=== PATIENT | male | born 1960 | race Caucasian/White ===

== ENCOUNTER 2017-03-16 14:40 | Emergency (ER) | payer BC ==
[2017-03-16] MEDS ORDERED: Albuterol/Ipratropium NEB.SOL* Albuterol 2.5 MG/Ipratropium 0.5 MG 3 ML INH ONE (15:43)
--- NOTE | 2017-03-16 16:42 | RAD ---
Indication: Shortness of breath, wheezing. 2 views the chest are reviewed. Heart is of normal size and configuration. Lung falcon appear to be hyperinflated with no evidence of alveolar consolidation. IMPRESSION: Hyperinflated lung falcon. No definite pneumonia is noted.
[2017-03-16 17:13] VITALS: BP 155/95
--- NOTE | 2017-03-16 17:31 | UC ---
Sharon Willams Alfonso, scribed for Moisés Medina MD on 03/16/17 at 1600 . Shortness of Breath HPI - HPI Summary HPI Summary: This patient is a 56 year old M presenting to [facility] accompanied by a male with a chief complaint of SOB since 3 months ago. He states I cannot get a full breath of air. Symptoms aggravated by exertion and alleviated by albuterol sulfate. Patient reports~chills, productive cough (clear phlegm), and wheezing. Patient denies~fever, nausea, rhinorrhea, CP, calf pain, and calf swelling. Tobacco abuse disorder. He denies PMHx of COPD, CAD, and HTN. PMHx of anxiety. - History of Current Complaint Chief Complaint: UCRespiratory Stated Complaint: SOB,CHEST CONGEST,COUGH Time Seen by Provider: 03/16/17 15:12 Hx Obtained From: Patient Onset/Duration: Sudden Onset, Lasting Weeks - 3 months, Still Present Timing: Constant Current Severity: Moderate Aggrevating Factors: Deep Breaths - Exertion Alleviating Factors: Bronchodilators Associated Signs & Symptoms: Positive: Cough (Productive), Wheezing, Chills - Allergy/Home Medications Allergies/Adverse Reactions: Allergies Allergy/AdvReac Type Severity Reaction Status Date / Time Penicillins [PCN] Allergy See Comment Verified 03/16/17 14:52 Home Medications: Home Medications Benzonatate CAP* [Tessalon 100 MG CAP*] 100 mg PO TID 03/16/17 [History Confirmed 03/16/17] Fluticasone NASAL SPRAY 50MCG* [Flonase NASAL SPRAY 50MCG*] 2 spray BOTH NARES DAILY 03/16/17 [History Confirmed 03/16/17] PMH/Surg Hx/FS Hx/Imm Hx Psychological History: Anxiety - Surgical History Surgical History: Yes Surgery Procedure, Year, and Place: orthoscopic to knee - Family History Known Family History: Positive: Diabetes - Social History Alcohol Use: Rare Substance Use Type: None Smoking Status (MU): Heavy Every Day Tobacco Smoker Type: Cigarettes Review of Systems Constitutional: Chills, Other - Negative fever ENT: Other - Negative rhinorrhea Respiratory: Shortness Of Breath, Cough - productive with clear phlegm, Other - Positive wheezing. Cardiovascular: Other - Negative CP Gastrointestinal: Other - Negative nausea. Musculoskeletal: Other: - Negative calf pain, and calf swelling All Other Systems Reviewed And Are Negative: Yes Physical Exam Triage Information Reviewed: Yes Vital Signs: Initial Vital Signs Temp 98.1 F 03/16/17 14:45 Pulse 78 03/16/17 14:45 Resp 18 03/16/17 14:45 BP 150/80 03/16/17 14:45 Pulse Ox 95 03/16/17 14:45 Vital Signs Reviewed: Yes - Additional Comments The patient is well-nourished in no acute distress and in no acute pain. The skin is warm and dry and skin color reflects adequate perfusion. HEENT: The head is normocephalic and atraumatic. The pupils are equal and reactive. The conjunctivae are clear and without drainage. Nares are patent and without drainage. Mouth reveals moist mucous membranes and the throat is without erythema and exudate. The external ears are intact. The ear canals are patent and without drainage. The tympanic membranes are intact. No sinus tenderness to percussion. No rhinorrhea. Neck is supple with full range of motion and non-tender. There are no carotid bruits. There is no neck vein distension. No adenopathy. Respiratory: Chest is non-tender. Lungs breath sounds are symmetrical and equal. Wheezing in bilateral bases. Rhonchi. Cardiovascular: Heart is regular rate and rhythm. There is no murmur or rub auscultated. There is no peripheral edema and pulses are symmetrical and equal. Abdomen: The abdomen is soft and non-tender. There are normal bowel sounds heard in all four quadrants and there is no organomegaly palpated. Musculoskeletal: There is no back pain noted. Extremities are non-tender with full range of motion. There is 2 second capillary refill. There is no peripheral edema or calf tenderness elicited. Veracious veins in posterior parts of legs. Neurological: Patient is alert and oriented to person, place and time. The patient has symmetrical motor strength in all four extremities. Cranial nerves are grossly intact. Psychiatric: The patient has an appropriate affect and does not exhibit any anxiety or depression. Diagnostics - Laboratory Diagnostic Studies Completed/Ordered: CXR reveals, per radiologist, hyper inflated lungs. No definitive pneumonia is noted. - EKG Cardiac Rate: NL - BPM 68 Cardiac Rhythm: Sinus: Normal - 1540. Old anterior wall. Poor R-wave progression. Normal axis. Shortness of Breath Dx - Course Course Of Treatment: This patient is a 56 year old M presenting to [facility] accompanied by a male with a chief complaint of SOB since 3 months ago. He states I cannot get a full breath of air. Symptoms aggravated by exertion and alleviated by albuterol sulfate. Patient reports chills, productive cough ( clear phlegm), and wheezing. Patient denies fever, nausea, rhinorrhea, CP, calf pain, and calf swelling. Tobacco abuse disorder. He denies PMHx of COPD, CAD, and HTN. PMHx of anxiety. An EKG reveals NSR, old anterior wall, and poor R- wave progression. CXR reveals hyper inflated lungs. No definitive pneumonia is noted. In the [facility] course the patient was given Duoneb. Patient will be discharged with prescription for Ventolin HFA Inhaler, Z-TIMMY prednisone, and follow up from PCP. The patient is agreeable with this plan. - Differential Dx/Diagnosis Differential Diagnosis/HQI/PQRI: Asthma, Bronchitis, COPD Exacerbation, Pneumonia Provider Diagnoses: ACUTE ASTHMATIC BRONCHITIS. Discharge - Discharge Plan Condition: Stable Disposition: HOME Prescriptions: Albuterol HFA INHALER* [Ventolin HFA Inhaler*] 2 puff INH Q4H PRN #1 mdi PRN Reason: shortness of breath Azithromycin TAB* [Zithromax TAB (Z-TIMMY) 250 mg #6 tabs] 2 tab PO .TODAY, THEN 1 DAILY #1 timmy predniSONE TAB* [Deltasone TAB*] 60 mg PO DAILY #15 tab Patient Education Materials: Acute Bronchitis (ED) Referrals: [facility] [place] PHYSICIAN REFERRAL [Outside] - 3 Days The documentation as recorded by the Sharon lind Alfonso accurately reflects the service I personally performed and the decisions made by me, Moisés Medina MD.
== END 2017-03-16 17:41 | disposition home or self-care (01) ==
LOC: UCEAST 14:40
DX: J45.909 Unspecified asthma, uncomplicated (principal); J44.9 Chronic obstructive pulmonary disease, unspecified; I25.10 Atherosclerotic heart disease of native coronary artery without angina pectoris; I10 Essential (primary) hypertension; F41.9 Anxiety disorder, unspecified; Z88.0 Allergy status to penicillin; F17.210 Nicotine dependence, cigarettes, uncomplicated
CPT/HCPCS: 71020; 93005; 99202; A9270-GY; G0463

== ENCOUNTER 2017-05-04 12:18 | Emergency (ER) | payer BC ==
[2017-05-04 12:26] VITALS: BP 150/97
--- NOTE | 2017-05-04 12:48 | ED ---
Shortness of Breath - HPI Summary HPI Summary: Patient presents to the with CC of SOB and cough. He states the SOB has been worsening over a year and a half. He is a smoker. He denies hx of asthma. He states the cough improved after prednisone, robitussin, and z-timmy on last visit, but now returns. Denies fevers, sweats or chills. Cough is without production. He states he has been feeling otherwise well. He feels the shortness of breath and pressure is located deep in the chest and feels himself wheezing. - History of Current Complaint Chief Complaint: UCRespiratory Time Seen by Provider: 05/04/17 12:29 Hx Obtained From: Patient Onset/Duration: Sudden Onset Timing: Constant Current Severity: Mild Dyspnea At: Rest Alleviating Factors: Bronchodilators, OTC Meds, Upright Position, Spontaneous Resolution Associated Signs & Symptoms: Cough (Nonproductive), Chest Pain w/Cough - Risk Factors Pulmonary Embolism: Smoking Cardiac: Smoking Pseudomonas: Repeated Antibiotics Past 3 Months Tuberculosis: Corticosteriod Use - Allergy/Home Medications Allergies/Adverse Reactions: Allergies Allergy/AdvReac Type Severity Reaction Status Date / Time Penicillins [PCN] Allergy See Comment Verified 03/16/17 14:52 PMH/Surg Hx/FS Hx/Imm Hx Previously Healthy: Yes Respiratory History: Reports: Other Respiratory Problems/Disorders - TREATED 4 MO AGO AT AN URGENT CARE - Cancer History Hx Chemotherapy: No Hx Radiation Therapy: No Hx Palliative Cancer Treatment: No - Surgical History Surgery Procedure, Year, and Place: orthoscopic to knee Hx Anesthesia Reactions: No - Immunization History Hx Pertussis Vaccination: No Immunizations Up to Date: Unable to Obtain/Confirm Infectious Disease History: No Infectious Disease History: Denies: Traveled Outside the [place] in Last 30 Days - Family History Known Family History: Positive: Diabetes - Social History Occupation: Employed Full-time Lives: With Family Alcohol Use: Rare Substance Use Type: Reports: None Hx Tobacco Use: Yes Smoking Status (MU): Light Every Day Tobacco Smoker Type: Cigarettes Amount Used/How Often: 5 per day Review of Systems Constitutional: Negative Negative: Fever, Chills, Fatigue ENT: Negative Negative: Dental Pain, Sore Throat, Ear Ache Negative: Palpitations, Chest Pain Positive: Shortness Of Breath, Cough Genitourinary: Negative Musculoskeletal: Negative Neurological: Negative Psychological: Other All Other Systems Reviewed And Are Negative: Yes Physical Exam Triage Information Reviewed: Yes Vital Signs On Initial Exam: Initial Vitals Temp Pulse Resp BP Pulse Ox 98.0 F 53 16 150/97 96 05/04/17 12:22 05/04/17 12:22 05/04/17 12:22 05/04/17 12:22 05/04/17 12:22 Vital Signs Reviewed: Yes Appearance: Positive: Well-Appearing, Well-Nourished Skin: Positive: Warm, Skin Color Reflects Adequate Perfusion Head/Face: Positive: Normal Head/Face Inspection, Temporal Artery Tenderness Eyes: Positive: Normal, IRAJ Neck: Positive: Supple, No Lymphadenopathy Respiratory/Lung Sounds: Positive: Clear to Auscultation, Breath Sounds Present Cardiovascular: Positive: Normal, RRR, Pulses are Symmetrical in both Upper and Lower Extremities Musculoskeletal: Positive: Normal, Strength/ROM Intact Neurological: Positive: Sensory/Motor Intact, Alert, Oriented to Person Place, Time Psychiatric: Positive: Normal AVPU Assessment: Alert - [place] Coma Scale Best Eye Response: 4 - Spontaneous Best Motor Response: 6 - Obeys Commands Best Verbal Response: 5 - Oriented Diagnostics - Vital Signs Vital Signs Temp Pulse Resp BP Pulse Ox 05/04/17 12:22 98.0 F 53 16 150/97 96 - Laboratory Lab Statement: Any lab studies that have been ordered have been reviewed, and results considered in the medical decision making process. Course/Dx - Course Course Of Treatment: Patient evaluated for repeated cough x 6 weeks. Chest xray last visit showed no acute findings and his sxs improved with prednisone, albuterol and z-timmy. He states he has been wheezing, but lungs are CTA today. He denies chest pain. EKG last visit WNL. He has a PCP who follows him carefully and states they are doing a "battery of tests" on him. Today he is given the same meds upon last visit as these have improved his symptoms. He is OK with plan and discharge. - Diagnoses Differential Diagnosis/HQI/PQRI: Positive: Bronchitis, Chest Wall Pain Provider Diagnoses: Chronic cough Discharge - Discharge Plan Condition: Stable Disposition: HOME Prescriptions: Albuterol HFA INHALER* [Ventolin HFA Inhaler*] 1 puff INH Q4H PRN #1 mdi PRN Reason: Cough Azithromyxin TIMMY (NF) [Z-Timmy (Zithromax) 250 mg tabs #6] 2 tab PO .TODAY, THEN 1 DAILY #6 tab predniSONE TAB* [Deltasone TAB*] 50 mg PO DAILY #5 tab MDD 1 Patient Education Materials: Chronic Cough (ED), Dyspnea (ED) Referrals: No Primary Care Phys,NOPCP [Primary Care Provider] - Additional Instructions: Follow up with your PCP please for further evaluation of this cough If you develop worsening symptoms - return to the ED Take all medications as directed. Humidifier in the home will help. Warm water with lemon and honey or tea for sore throat and congestion. Take medications as prescribed. IF symptoms do not improve in 1 week or you develop fevers, return to the UC.
== END 2017-05-04 12:53 | disposition home or self-care (01) ==
LOC: UCEAST 12:18
DX: R05 Cough (principal); F17.210 Nicotine dependence, cigarettes, uncomplicated
CPT/HCPCS: 99212; G0463